=== PATIENT | female | born 1935 | race Caucasian/White ===

== ENCOUNTER 2019-09-10 06:33 | Emergency (ER) | payer MEDICARE, OTHER ==
--- NOTE | 2019-09-10 06:44 | ED ---
Head Injury - HPI Summary HPI Summary: 84-year-old female with a significant past medical history of NSTEMI, anemia, hyperlipidemia, vascular dementia without behavioral disturbance, osteoarthritis , hypothyroidism, presents the emergency department today from [facility] after falling out of her bed this morning and hitting her head on a nightstand. Patient is pleasantly demented and unable to provide an adequate history. Patient appears to be in no acute distress and is resting comfortably on the hospital stretcher. Nursing staff say she is at her baseline neurologically does not appear to have any deficits. Patient does not take anticoagulation other than aspirin. Patient has a 4 cm laceration to the posterior aspect of her scalp. Hemostasis achieved. Family history and social history are noncontributory. - History Of Current Complaint Stated Complaint: FALL PER EMS Hx Obtained From: Patient Hx From Patient Unobtainable Due To: Dementia Mechanism Of Injury: Fall From Height Of: - 3 feet Onset/Duration: Started Minutes Ago Onset of Pain: Immediate Severity Currently: None Severity Initially: Mild Pain Intensity: 0 Pain Scale Used: 0-10 Numeric Location of Head Injury: Occipital Location: Discrete At: - Posterior aspect scalp Associated Signs And Symptoms: Swelling Anticoagulant Therapy: ASA - Allergies/Home Medications Allergies/Adverse Reactions: Allergies Allergy/AdvReac Type Severity Reaction Status Date / Time latex Allergy Rash Verified 03/13/19 06:14 nabumetone Allergy Unknown Verified 03/13/19 06:14 Reaction Details naproxen Allergy Unknown Verified 03/13/19 06:14 Reaction Details Perfume Allergy Sneezing Verified 11/20/15 07:09 PMH/Surg Hx/FS Hx/Imm Hx Endocrine/Hematology History: Reports: Hx Thyroid Disease - Hypo Cardiovascular History: Reports: Other Cardiovascular Problems/Disorders - DVT 1996 Respiratory History: Reports: Hx Pulmonary Embolism - 1996 GI History: Reports: Hx Gastroesophageal Reflux Disease, Hx Hiatal Hernia Musculoskeletal History: Reports: Hx Arthritis - Osteo Sensory History: Reports: Hx Contacts or Glasses - GLASSES Denies: Hx Hearing Aid Opthamlomology History: Reports: Hx Contacts or Glasses - GLASSES Neurological History: Reports: Other Neuro Impairments/Disorders - Confusion - Cancer History Hx Chemotherapy: No Hx Radiation Therapy: No - Surgical History Surgery Procedure, Year, and Place: TONSILLECTOMY. LAP SURINDER DAYANARA. R TKR 1997 JB. R THR 2009 JB. L TKR 2010 JB. BILAT CATARACT JB. HIATAL HERNIA REPAIR 1999 JB Hx Anesthesia Reactions: No Infectious Disease History: Unable to Obtain/Confirm Infectious Disease History: Reports: Hx Hepatitis - HX OF Denies: Traveled Outside the [place] in Last 30 Days - Family History Known Family History: Positive: Non-Contributory - Social History Alcohol Use: None Hx Substance Use: No Substance Use Type: Reports: None Hx Tobacco Use: No Smoking Status (MU): Unknown if Ever Smoked Review of Systems - ROS Summary Review of Systems Summary: Review of systems was unable to be obtained due to patient's dementia Negative: Fever All Other Systems Reviewed And Are Negative: Yes Physical Exam - Summary Physical Exam Summary: 4 cm laceration with hemostasis appreciated to the posterior aspect of the scalp. PERRLA, no evidence of bony step-off of the skull. No evidence of hemotympanum, Martin sign, periorbital ecchymosis which would indicate a basilar skull fracture. Neck is nontender. No midline tenderness. No edema of the lower extremities. Triage Information Reviewed: Yes Vital Signs On Initial Exam: Initial Vitals Temp Pulse Resp BP Pulse Ox 98.4 F 78 16 131/60 97 09/10/19 06:34 09/10/19 06:34 09/10/19 06:34 09/10/19 06:34 09/10/19 06:34 Vital Signs Reviewed: Yes Completion Of Physical Exam Limited Due To: Dementia Appearance: Positive: Well-Appearing, No Pain Distress, Well-Nourished Skin: Positive: Warm, Skin Color Reflects Adequate Perfusion Eyes: Positive: EOMI, ABBI, Conjunctiva Clear ENT: Positive: Hearing grossly normal Neck: Positive: Supple, Nontender, No Lymphadenopathy. Negative: Nuchal Rigidity Respiratory/Lung Sounds: Positive: Clear to Auscultation, Breath Sounds Present Cardiovascular: Positive: RRR, S1, S2 Abdomen Description: Positive: Nontender, Soft. Negative: Distended, Guarding Bowel Sounds: Positive: Present Musculoskeletal: Positive: Strength/ROM Intact. Negative: Pain @, Edema Left, Edema Right Neurological: Positive: Sensory/Motor Intact, Facial Symmetry, Speech Normal. Negative: Alert, Oriented to Person Place, Time Psychiatric: Positive: Normal AVPU Assessment: Alert Procedures - Sedation Patient Received Moderate/Deep Sedation with Procedure: No Diagnostics - Vital Signs Vital Signs Temp Pulse Resp BP Pulse Ox 09/10/19 06:34 98.4 F 78 16 131/60 97 - Laboratory Lab Statement: Any lab studies that have been ordered have been reviewed, and results considered in the medical decision making process. Head Injury Course/Dx Course Of Treatment: Patient was seen and examined. Vitals noted. CT of the brain without contrast was obtained which showed no evidence of pathology including hemorrhage. Patient's laceration was cleaned using pressure irrigation and 300 cc of normal saline. Pt laceration was superficial and did not require sutures or dangelo for closure. patient appeared to be well and is in no acute distress. Patient was discharged back to [facility]. - Diagnoses Differential Diagnosis/HQI/PQRI: Concussion Without LOC, Contusion, Hematoma, Intracranial Bleed, Laceration, Skull Fracture Provider Diagnoses: Laceration of scalp, Fall Discharge ED - Sign-Out/Discharge Documenting (check all that apply): Patient Departure - Discharge Plan Condition: Stable Disposition: LONG-TERM FACILITY Patient Education Materials: Laceration (ED) Referrals: Nancy Keene [Primary Care Provider] - 5 Days Additional Instructions: This patient was seen in the emergency department after a fall. A CT scan of the brain was done and showed no evidence of pathology or intracranial bleeds. Her laceration was cleaned and did not require sutures or dangelo for closure. Please have her follow-up with her primary care physician in 5 days for further evaluation and management. Please continue to monitor the patient for neurological deficits. Please return to emergency department immediately if she develops any new or worsening symptoms. - Billing Disposition and Condition Condition: STABLE Disposition: [facility] - Attestation Statements Provider Attestation: I was available for consult. This patient was seen by the GREGORIO. The patient was not presented to, seen by, or examined by me. Aldo Thomas MD
[2019-09-10 09:07] VITALS: BP 131/72
== END 2019-09-10 09:37 ==
LOC: ED 06:33
DX: S01.01XA Laceration without foreign body of scalp, initial encounter (principal); W06.XXXA Fall from bed, initial encounter; Y92.122 Bedroom in nursing home as the place of occurrence of the external cause; I25.2 Old myocardial infarction; D64.9 Anemia, unspecified; E78.5 Hyperlipidemia, unspecified; F01.50 Vascular dementia, unspecified severity, without behavioral disturbance, psychotic disturbance, mood disturbance, and anxiety; E03.9 Hypothyroidism, unspecified; K21.9 Gastro-esophageal reflux disease without esophagitis; Z88.8 Allergy status to other drugs, medicaments and biological substances; Z86.718 Personal history of other venous thrombosis and embolism; Z86.711 Personal history of pulmonary embolism; Z91.040 Latex allergy status; Z90.49 Acquired absence of other specified parts of digestive tract
CPT/HCPCS: 12002; 70450; 99282

== ENCOUNTER 2019-09-12 06:23 | Inpatient (IN) | payer MEDICARE, OTHER ==
[2019-09-12 07:36] LABS: ABS Basophils 0.1 10^3/ul (0-0.2); ABS Eosinophils 0.1 10^3/ul (0-0.6); ABS Lymphocytes 1.6 10^3/ul (1.0-4.8); ABS Neutrophils 6.7 10^3/ul (1.5-7.7); Hematocrit 36 % (35-47); Hemoglobin 11.9 g/dL (12.0-16.0); Lymphocyte % 16.8 %; Mean Corpuscular HGB Conc 33 g/dL (31-36); Mean Corpuscular Hemoglobin 29 pg (27-31); Mean Corpuscular Volume 87 fL (80-97); Mean Platelet Volume 8.2 fL (7.4-10.4); Platelet Count 280 10^3/uL (150-450); Red Blood Count 4.13 10^6 /uL (3.70-4.87); Red Cell Distribution Width 18 % (10-15); White Blood Count 9.5 10^3/uL (3.5-10.8)
[2019-09-12 07:53] LABS: Albumin 3.1 g/dL (3.2-5.2); Albumin/Globulin Ratio 0.9 (1-3); BUN/Creatinine Ratio 30.8 (8-20); Calcium 8.5 mg/dL (8.6-10.3); EGFR African American 104.8 (>60); EGFR Non-African American 86.6 (>60); Globulin 3.6 g/dL (2-4); Potassium 3.8 mmol/L (3.5-5.0); Total Bilirubin 0.5 mg/dL (0.2-1.0); Total Protein 6.7 g/dL (6.4-8.9)
[2019-09-12 08:32] LABS: Urine Appearance Turbid; Urine Bilirubin Negative (Negative); Urine Blood 2+ (Negative); Urine Color Yellow; Urine Glucose Negative (Negative); Urine Ketones Negative (Negative); Urine Nitrite Positive (Negative); Urine Protein 2+(100 mg/dL) (Negative); Urine Specific Gravity 1.015 (1.010-1.030); Urine Urobilinogen Negative (Negative)
[2019-09-12 08:45] LABS: Urine Bacteria 3+ (Absent); Urine Red Blood Cell 3+(>10/hpf) (Absent); Urine White Blood Cell 3+(>20/hpf) (Absent)
[2019-09-12] MEDS ORDERED: Cefepime 2 GM in Dextrose(*) 2 GM/50 ML BAG IV ONE (09:31)
[2019-09-12] MEDS ORDERED: Carboxymethylcellulos 1% OPTH* 1 DROP AMP BOTH EYES PRN (10:07)
--- NOTE | 2019-09-12 10:10 | ED ---
Lower Extremity - HPI Summary HPI Summary: This patient is an 84-year-old female with a history of dementia [facility] with CC of pain to the L hip. Per [facility], patient is bedbound and uses a jg to get into a wheelchair. She fell 2 days ago and was seen in the ED. At that time, she had a brain CT and a lac repair. She did not have any other complaints at that time. Today she returns as she is now complaining of L hip pain. Unsure how she fell. Pt has dementia and all ROS, HPI is limited. - History of Current Complaint Chief Complaint: EDHipPelvisInjury Stated Complaint: HIP PAIN PER EMS Time Seen by Provider: 09/12/19 06:33 Hx Obtained From: EMS, Medical Records Mechanism Of Injury: Other - fall Onset of Pain: Minutes, Days Onset/Duration: Days Severity Initially: Moderate Severity Currently: Moderate Pain Intensity: 5 Pain Scale Used: 0-10 Numeric Timing: Constant Location: Is Discrete @ - left hip and right hip pain - worse to the L side Associated Signs And Symptoms: Positive: Negative Aggravating Factor(s): Standing, Ambulation Alleviating Factor(s): Rest Able to Bear Weight: No - Allergies/Home Medications Allergies/Adverse Reactions: Allergies Allergy/AdvReac Type Severity Reaction Status Date / Time lactose Allergy GI Upset Verified 09/12/19 06:42 latex Allergy Rash Verified 09/12/19 06:42 nabumetone Allergy Unknown Verified 09/12/19 06:42 Reaction Details naproxen Allergy Unknown Verified 09/12/19 06:42 Reaction Details Perfume Allergy Sneezing Verified 09/12/19 06:42 Home Medications: Home Medications Carboxymethylcellulose Sodium [Theratears] 1 drop BOTH EYES DAILY PRN 09/12/19 [ History Confirmed 09/12/19] Famotidine [Pepcid] 20 mg PO BEDTIME 09/12/19 [History Confirmed 09/12/19] Sertraline* [Zoloft*] 75 mg PO DAILY 09/12/19 [History Confirmed 09/12/19] busPIRone TAB* [Buspar TAB*] 5 mg PO BID 09/12/19 [History Confirmed 09/12/19] PMH/Surg Hx/FS Hx/Imm Hx Previously Healthy: No - dementia Endocrine/Hematology History: Reports: Hx Thyroid Disease - Hypo Cardiovascular History: Reports: Other Cardiovascular Problems/Disorders - DVT 1996 Respiratory History: Reports: Hx Pulmonary Embolism - 1996 GI History: Reports: Hx Gastroesophageal Reflux Disease, Hx Hiatal Hernia Musculoskeletal History: Reports: Hx Arthritis - Osteo Sensory History: Reports: Hx Contacts or Glasses - GLASSES Denies: Hx Hearing Aid Opthamlomology History: Reports: Hx Contacts or Glasses - GLASSES Neurological History: Reports: Other Neuro Impairments/Disorders - Confusion - Cancer History Hx Chemotherapy: No Hx Radiation Therapy: No - Surgical History Surgery Procedure, Year, and Place: TONSILLECTOMY. LAP SURINDER DAYANARA. APPENDECTOMY. R TKR 1997 JB. R THR 2009 JB. L TKR 2010 JB. BILAT CATARACT JB. HIATAL HERNIA REPAIR 1999 JB. ORIF L HIP 03/2019 Hx Anesthesia Reactions: No - Immunization History Hx Pertussis Vaccination: No Immunizations Up to Date: Yes Infectious Disease History: Unable to Obtain/Confirm Infectious Disease History: Reports: Hx Hepatitis - HX OF Denies: Traveled Outside the [place] in Last 30 Days - Family History Known Family History: Positive: Non-Contributory - Social History Occupation: Unemployed Lives: [facility] Alcohol Use: None Hx Substance Use: No Substance Use Type: Reports: None Hx Tobacco Use: No Smoking Status (MU): Never Smoked Tobacco Review of Systems - ROS Summary Review of Systems Summary: unable to obtain a full hx d/t pts dementia Positive: Arthralgia - pain to the L and R hip All Other Systems Reviewed And Are Negative: Yes Physical Exam - Summary Physical Exam Summary: pt lying in bed - stretcher on arrival - appears comfortable Triage Information Reviewed: Yes Vital Signs On Initial Exam: Initial Vitals Pulse Pulse Ox 96 94 09/12/19 06:28 09/12/19 06:28 Vital Signs Reviewed: Yes Appearance: Positive: Well-Appearing Skin: Positive: Skin Color Reflects Adequate Perfusion Head/Face: Positive: Normal Head/Face Inspection Respiratory/Lung Sounds: Positive: Clear to Auscultation, Breath Sounds Present Cardiovascular: Positive: Pulses are Symmetrical in both Upper and Lower Extremities Musculoskeletal: Positive: Pain @ - Left hip pain on physical examination, L internally rotated Neurological: Positive: Sensory/Motor Intact, Alert, Oriented to Person Place, Time, Speech Normal Psychiatric: Positive: Affect/Mood Appropriate AVPU Assessment: Alert Procedures - Sedation Patient Received Moderate/Deep Sedation with Procedure: No Diagnostics - Vital Signs Vital Signs Temp Pulse Resp BP Pulse Ox 09/12/19 09:00 72 93 09/12/19 08:58 81 116/60 94 09/12/19 08:28 71 119/71 93 09/12/19 08:07 74 94 09/12/19 07:58 129/64 09/12/19 07:28 129/76 09/12/19 07:06 85 114/72 93 09/12/19 06:30 97 93 09/12/19 06:29 98.8 F 96 17 112/71 94 09/12/19 06:28 96 94 - Laboratory Lab Results: Lab Results 09/12/19 09/12/19 09/12/19 Range/Units 07:29 07:29 08:10 WBC 9.5 (3.5-10.8) 10^3/uL RBC 4.13 (3.70-4.87) 10^6 /uL Hgb 11.9 L (12.0-16.0) g/dL Hct 36 (35-47) % MCV 87 (80-97) fL MCH 29 (27-31) pg MCHC 33 (31-36) g/dL RDW 18 H (10-15) % Plt Count 280 (150-450) 10^3/uL MPV 8.2 (7.4-10.4) fL Neut % (Auto) 71.1 % Lymph % (Auto) 16.8 % [place] % (Auto) 10.4 % Eos % (Auto) 1.0 % Baso % (Auto) 0.7 % Absolute Neuts (auto) 6.7 (1.5-7.7) 10^3/ul Absolute Lymphs (auto) 1.6 (1.0-4.8) 10^3/ul Absolute Monos (auto) 1.0 H (0-0.8) 10^3/ul Absolute Eos (auto) 0.1 (0-0.6) 10^3/ul Absolute Basos (auto) 0.1 (0-0.2) 10^3/ul Absolute Nucleated RBC 0.0 10^3/ul Nucleated RBC % 0.0 Sodium 136 (135-145) mmol/L Potassium 3.8 (3.5-5.0) mmol/L Chloride 102 (101-111) mmol/L Carbon Dioxide 27 (22-32) mmol/L Anion Gap 7 (2-11) mmol/L BUN 20 (6-24) mg/dL Creatinine 0.65 (0.51-0.95) mg/dL Est GFR ( Amer) 104.8 (>60) Est GFR (Non-Af Amer) 86.6 (>60) BUN/Creatinine Ratio 30.8 H (8-20) Glucose 107 H (70-100) mg/dL Calcium 8.5 L (8.6-10.3) mg/dL Total Bilirubin 0.50 (0.2-1.0) mg/dL AST 15 (13-39) U/L ALT 8 (7-52) U/L Alkaline Phosphatase 90 (34-104) U/L Total Protein 6.7 (6.4-8.9) g/dL Albumin 3.1 L (3.2-5.2) g/dL Globulin 3.6 (2-4) g/dL Albumin/Globulin Ratio 0.9 L (1-3) Urine Color Yellow Urine Appearance Turbid Urine pH 6.0 (5-9) Ur Specific [place] 1.015 (1.010-1.030) Urine Protein 2+(100 mg/dl) A (Negative) Urine Ketones Negative (Negative) Urine Blood 2+ A (Negative) Urine Nitrate Positive A (Negative) Urine Bilirubin Negative (Negative) Urine Urobilinogen Negative (Negative) Ur Leukocyte Esterase 3+ A (Negative) Urine WBC (Auto) 3+(>20/hpf) A (Absent) Urine RBC (Auto) 3+(>10/hpf) A (Absent) Urine Bacteria 3+ A (Absent) Urine Glucose Negative (Negative) Result Diagrams: 09/12/19 07:29 09/12/19 07:29 Lab Statement: Any lab studies that have been ordered have been reviewed, and results considered in the medical decision making process. Lower Extremity Course/Dx - Course Course Of Treatment: On physical examination, patient is complaining of pain to the left side, however on palpation, she does have slight tenderness to the right side as well. She has worsening pain to the left hip without pain to the left leg. A left hip/pelvis x-ray was obtained which shows: There is a periprosthetic fracture adjacent to the proximal right femoral prosthesis. Discussed with Dr. Cee. Pt will be admitted to hospitalist service with ortho consult. - Diagnoses Differential Diagnosis/HQI/PQRI: Positive: Fracture (Closed), Fracture (Open) Provider Diagnoses: Periprosthetic fracture around internal prosthetic right hip joint - Physician Notifications Discussed Care Of Patient With: Keely Cee Discharge ED - Sign-Out/Discharge Documenting (check all that apply): Patient Departure - Discharge Plan Condition: Fair Disposition: ADMITTED TO [facility] Referrals: Nancy Keene [Primary Care Provider] - - Billing Disposition and Condition Condition: FAIR Disposition: Admitted to [facility]
[2019-09-12] MEDS ORDERED: cefTRIAXone(*) 1 GM in NS 0.9% 50 ML* 50 ML IVPB SCH (11:00)
[2019-09-12] MEDS ORDERED: Acetaminophen TAB* 325 MG PO SCH (11:00)
[2019-09-12] MEDS: CMC:Lactase Enzyme (NF) 3,000 UNIT TAB PO SCH ×2 (12:20→16:22)
--- NOTE | 2019-09-12 15:13 | CONS ---
CONSULTATION REPORT: DATE OF CONSULT: 09/12/19 CHIEF COMPLAINT: Right hip pain. HISTORY OF PRESENT ILLNESS: Ruby is an 84-year-old female who fell at [facility] a couple of days ago. She was having persistent hip pain , so she was brought to the emergency room. She had x-rays which showed a healed intertrochanteric fracture on the left. She has had a right total hip replacement and she has a fracture around the femoral stem. It is rather proximal. It is nondisplaced. CT scan shows that the fracture line does not extend proximally or distally. The patient is a non-ambulator. She lives at the [facility]. PHYSICAL EXAM: She is an elderly woman in minimal distress at rest. She denies any hip pain. On exam of her right hip, she does not have any shortening or rotation of her lower extremity. She has intact neurovascular function in the right lower extremity and a palpable dorsalis pedis pulse. Her foot is well perfused. IMPRESSION: Periprosthetic fracture around a right total hip replacement, which is nondisplaced. PLAN: Because the patient is a non-ambulator, this is a nonoperative fracture because also the fracture fragments are well reduced, I believe this will heal on its own. The patient can sit up in bed or can transfer to a chair with toe- touch weightbearing on the right lower extremity or with a Soheila lift as is the usual protocol. I can see her back in followup for recheck in my office in approximately 1 month. [id number]/[facility] #: [id number] ANNAMARIA
[2019-09-12 15:41] VITALS: BP 122/78
--- NOTE | 2019-09-12 17:31 | HP ---
CC: Provider at [facility] * HISTORY AND PHYSICAL/DISCHARGE SUMMARY: DATE OF ADMISSION/DISCHARGE: 09/12/19 PRIMARY CARE PROVIDER: Provider at [facility]. CHIEF COMPLAINT: Right hip pain. HISTORY OF PRESENT ILLNESS: Ms. Prince is an 84-year-old female who has a history of dementia, hyperlipidemia, hypertension, past history of DVT/PE, who initially presented to [facility] on 09/10/19 after a fall. At that time, she was evaluated by CT scan of the brain. This was negative for any acute intracranial hemorrhage or mass effect. The patient was discharged back to [facility] [place]. She reportedly had pain in both hips, the right being more painful than the left. There was concern for shortening of the right leg, and therefore , she was sent to the emergency room. In the ER, the patient had a hip/pelvis x -ray obtained. This revealed a periprosthetic fracture adjacent to the proximal right femoral prosthesis. She then underwent CT of the pelvis and lower extremity. This confirmed periprosthetic fracture adjacent to the proximal femoral prosthesis involving the right greater trochanter region. The fracture fragment is slightly displaced. The patient was also noted to be status post operative reduction, internal fixation of an intertrochanteric fracture of the left femur. The fracture is incompletely healed. There is also a right inguinal hernia containing nondistended small bowel. Because of the periprosthetic fracture, the hospitalist service was asked to admit the patient. At this time, the patient states that she is not having any pain. She denies any shortness of breath. In general, the patient is a very poor historian. PAST MEDICAL HISTORY: 1. Hypothyroidism. 2. History of DVT/PE. 3. GERD. 4. Dementia. 5. Hyperlipidemia. 6. Hypertension. PAST SURGICAL HISTORY: 1. Appendectomy. 2. Cholecystectomy. 3. Hernia repair. 4. Right total hip arthroplasty. 5. Left ORIF. 6. Right total knee arthroplasty. 7. Left total knee arthroplasty. 8. Tonsillectomy. MEDICATIONS: 1. BuSpar 5 mg p.o. b.i.d. 2. Zoloft 75 mg p.o. daily. 3. Metoprolol XL 12.5 mg p.o. daily. 4. Melatonin 3 mg p.o. q.h.s. 5. Levothyroxine 50 mcg p.o. daily. 6. Lactase 9000 units p.o. t.i.d. 7. Famotidine 20 mg p.o. q.h.s. 8. Vitamin B12 1000 mcg p.o. daily. 9. Plavix 75 mg p.o. daily. 10. TheraTears 1 drop to both eyes daily p.r.n. dryness. 11. Lipitor 20 mg p.o. daily. 12. Aspirin 81 mg p.o. daily. 13. Tylenol Extra Strength 1000 mg p.o. daily p.r.n. pain. ALLERGIES: LACTOSE, LATEX, NABUMETONE, NAPROXEN, and PERFUME. FAMILY HISTORY: Unobtainable from the patient. SOCIAL HISTORY: The patient resides at [facility]. She does not smoke or drink alcohol. REVIEW OF SYSTEMS: As per HPI and otherwise unobtainable due to the patient's dementia. PHYSICAL EXAMINATION GENERAL: The patient is a well-developed, elderly female, lying flat on her back in the stretcher, in no acute distress. VITAL SIGNS: Blood pressure 131/72, pulse 67, respiratory rate 17, temp 98.8. HEENT: Pupils are equal and extraocular muscles are intact. There is evidence of prior cataract extraction bilaterally. Oropharynx is clear. There are chipped teeth throughout. NECK: There is no submandibular, cervical, or supraclavicular adenopathy. PULMONARY: Lungs are clear to auscultation bilaterally. CARDIAC: Normal S1, S2. Regular rate and rhythm. I do not appreciate any murmurs. ABDOMEN: Bowel sounds are present. Abdomen is soft, nontender, nondistended. MUSCULOSKELETAL: There is shortening and external rotation of the right hip. NEURO: Cranial nerves II through XII are grossly intact. Sensation is intact to light touch throughout. Strength is not tested at this time. PSYCH: The patient is alert. She is confused. SKIN: The visible areas of skin are warm and dry. She has an area on her right thigh of thickened purplish maculopapular discoloration with a whitish scale. DIAGNOSTIC STUDIES/LAB DATA: WBC 9.5, hemoglobin 11.9, hematocrit 36, platelets 280. Sodium 136, potassium 3.8, chloride 102, CO2 of 27, BUN 20, creatinine 0.65, glucose 107, calcium 8.5. Bilirubin 0.5, AST 15, ALT 8, alk phos 90. Albumin 3.1. Urinalysis reveals turbid urine with specific gravity of 1.015, 2+ protein, 2+ blood, positive nitrites, 3+ leukocyte esterase, 3+ wbc's , 3+ bacteria. Imaging reports as per HPI. There is a periprosthetic right hip fracture. ASSESSMENT AND PLAN: Ms. Prince is an 84-year-old female who has a history of dementia, hypertension, hyperlipidemia, and past pulmonary embolism as well as gastroesophageal reflux disease, who presents to the emergency room with complaints of right hip pain and is found to have a periprosthetic right hip fracture. 1. Periprosthetic right hip fracture. The patient is to be seen in consultation by Dr. Cee. For now, she will be on bed rest. She will have p.r.n. Tylenol and oxycodone for pain control. 2. Urinary tract infection. The patient has past history of Escherichia coli urinary tract infection that has been pansensitive. Because of this, she will be started on ceftriaxone 1 g IV daily. 3. Hyperlipidemia. Continue Lipitor. 4. Hypothyroidism. Continue current dose of Synthroid. 5. Hypertension. Blood pressure is under good control. Continue metoprolol XL 12.5 mg daily. 6. Aspirin and Plavix use. The patient is unable to tell me why she is on both aspirin and Plavix. For now, I am going to hold her Plavix while awaiting the orthopedics consultation. I suspect this may be related to past cardiovascular disease. 7. DVT prophylaxis: According to the Adult Thrombosis Prophylaxis Risk Factor Assessment Guide, the patient has a total risk factor score of 8, making her the highest risk. I am going to hold off on DVT prophylaxis until the patient is seen by Orthopedics. 8. Code status is DNR. TIME SPENT ON ADMISSION: Fifty minutes was spent admitting this patient. HOSPITAL COURSE: The patient was seen in consultation by Dr. Cee. She has informed me that the patient's fracture is nonoperative. The patient's fracture fragments are felt to be well reduced, and because she is a non- ambulator, it was felt that this will heal on its own. The patient can sit up in bed or can transfer to chair with toe-touch weightbearing on the right lower extremity or with a Soheila lift as is the usual protocol. The patient should be seen in Dr. Cee's office in approximately 1 month for followup. FOLLOWUP CONCERNS: The patient is being discharged back to [facility] [place] today, 10/01. ACTIVITY LEVEL: As tolerated with the patient being a Soheila lift or toe-touch weightbearing on the right. CONDITION ON DISCHARGE: Stable. DIET: Regular. TIME SPENT ON DISCHARGE: Twenty minutes was spent discharging the patient. [id number]/[facility] #: [id number] [facility]
[2019-09-12] MEDS ORDERED: Famotidine TAB* 20 MG PO SCH (21:00)
[2019-09-12] MEDS ORDERED: Melatonin 3 MG TAB PO SCH (21:00)
[2019-09-12] MEDS ORDERED: busPIRone TAB* 5 MG PO SCH (21:00)
[2019-09-13] MEDS ORDERED: Levothyroxine TAB* 50 MCG TAB PO SCH (05:00)
[2019-09-13] MEDS ORDERED: Metoprolol Succinate XL TAB* 25 MG PO SCH (09:00)
[2019-09-13] MEDS ORDERED: Atorvastatin* 20 MG TAB PO SCH (09:00)
[2019-09-13] MEDS ORDERED: Aspirin 81 mg CHEW TAB* 81 MG TAB.CHEW PO SCH (09:00)
[2019-09-13] MEDS ORDERED: Cyanocobalamin TAB* 500 MCG PO SCH (09:00)
[2019-09-13] MEDS ORDERED: Sertraline* 25 MG TAB PO SCH (09:00)
== END 2019-09-12 18:05 | DRG 536 ==
LOC: ED 06:23 → SSU 10:05
PROVIDERS: ADMIT Hospitalist; ATTEND Hospitalist
DX: S72.114A Nondisplaced fracture of greater trochanter of right femur, initial encounter for closed fracture (principal); M97.01XA Periprosthetic fracture around internal prosthetic right hip joint, initial encounter; N39.0 Urinary tract infection, site not specified; E03.9 Hypothyroidism, unspecified; K21.9 Gastro-esophageal reflux disease without esophagitis; M19.90 Unspecified osteoarthritis, unspecified site; Z96.653 Presence of artificial knee joint, bilateral; F03.90 Unspecified dementia, unspecified severity, without behavioral disturbance, psychotic disturbance, mood disturbance, and anxiety; Z96.641 Presence of right artificial hip joint; B96.20 Unspecified Escherichia coli [E. coli] as the cause of diseases classified elsewhere; I10 Essential (primary) hypertension; Z66 Do not resuscitate; K40.90 Unilateral inguinal hernia, without obstruction or gangrene, not specified as recurrent; W19.XXXA Unspecified fall, initial encounter; E78.5 Hyperlipidemia, unspecified; Z91.040 Latex allergy status; Z91.011 Allergy to milk products; Z88.8 Allergy status to other drugs, medicaments and biological substances; Z86.718 Personal history of other venous thrombosis and embolism; Z86.711 Personal history of pulmonary embolism; Z79.82 Long term (current) use of aspirin; Z79.02 Long term (current) use of antithrombotics/antiplatelets; Z79.890 Hormone replacement therapy; Y92.129 Unspecified place in nursing home as the place of occurrence of the external cause; Z74.01 Bed confinement status
CPT/HCPCS: 36415; 71045; 72192; 80053; 81003; 81015; 85025; 87077; 87086; 87186; 87641; 99284; J0696